=== PATIENT | male | born 1980 | race Native Hawaiian/Other Pacific Islander ===

== ENCOUNTER 2016-06-07 19:34 | Emergency (ER) | payer OTHER ==
[2016-06-07] MEDS ORDERED: NORCO 5/325 PO ONE (22:57)
--- NOTE | 2016-06-07 22:59 | Emergency Department Report ---
ED Fall HPI - General Chief Complaint: Neck Pain/Injury Stated Complaint: FALL/BACK PAIN Time Seen by Provider: 06/07/16 22:54 Source: patient, family Mode of arrival: Ambulatory - History of Present Illness Initial Comments: Patient here reported that he fell off a ladder 6 feet on Wednesday and landed on concrete and hit is neck and is having pain in the back of his neck. He denies any loss of consciousness or headache at present. He said he was seen at another facility and they did x-ray and CT scan but he doesn't know whether report is. He said they prescribed him Flexeril and Toradol and he is not having any relief. He cannot tell me what hospital he was seen at. He reports continued pain at 10 out of 10. Burning sensation to mid posterior neck. Denies numbness or tingling to extremities. Denies any dizziness or nausea. He is also complaining of left shoulder pain. MD Complaint: fall Onset/Timin -: days(s) Fall From: from height (distance) (6 feet off ladder) When Fall Occurred: # days [employer] (2) Fall Witnessed: yes, by bystander Place Fall Occurred: street Loss of Consciousness: none Prolonged Down Time?: no Symptoms Prior to Fall: none Location: neck Location - Extremities: Left: Shoulder (pain) Severity: severe Severity scale (0 -10): 10 Quality: aching, other (burning) Context: tripped/slipped Associated Symptoms: neck pain. denies: headache, numbness, weakness, chest paint, shortness of breath, abdominal pain, hematuria, unable to walk, lightheaded, vertigo, confusion - Related Data Previous Rx's Medication Instructions Recorded Last Taken Type traMADol [Ultram] 50 mg PO Q6HR PRN #20 tablet 06/08/16 Unknown Rx Allergies Allergy/AdvReac Type Severity Reaction Status Date / Time morphine AdvReac Nausea Verified 06/07/16 19:50 ED Review of Systems ROS: Stated complaint: FALL/BACK PAIN Other details as noted in HPI Comment: All other systems reviewed and negative Constitutional: denies: chills, fever Respiratory: no symptoms reported Cardiovascular: denies: chest pain, palpitations Gastrointestinal: denies: abdominal pain, nausea, vomiting Musculoskeletal: arthralgia. denies: back pain Skin: denies: rash Neurological: denies: headache, weakness, numbness, paresthesias, confusion, abnormal gait, vertigo ED Past Medical Hx - Past Medical History Previous Medical History?: No - Surgical History Past Surgical History?: Yes Additional Surgical History: RIGHT ARM - Family History Family history: no significant - Social History Smoking Status: Current Every Day Smoker Substance Use Type: None - Medications Home Medications: Home Medications Medication Instructions Recorded Confirmed Last Taken Type traMADol [Ultram] 50 mg PO Q6HR PRN #20 tablet 06/08/16 Unknown Rx ED Physical Exam - General Limitations: No Limitations General appearance: alert, in no apparent distress - Head Head exam: Present: atraumatic, normocephalic, normal inspection - Expanded Head Exam Expanded Head exam: Absent: laceration, abrasion, contusion, hematoma, racoon eyes, penaloza's sign, general tenderness, tenderness of temporal artery, CSF rhinorrhea , CSF otorrhea, other - Eye Eye exam: Present: normal appearance, PERRL, EOMI. Absent: periorbital swelling , periorbital tenderness Pupils: Present: normal accommodation - ENT ENT exam: Present: normal exam, normal orophraynx, mucous membranes moist, TM's normal bilaterally, normal external ear exam - Neck Neck exam: Present: normal inspection, full ROM. Absent: tenderness, meningismus - Expanded Neck Exam Expanded Neck exam: Absent: tenderness, midline deformity, anterior neck swelling, tracheal deviation - Respiratory Respiratory exam: Present: normal lung sounds bilaterally. Absent: respiratory distress, chest wall tenderness - Cardiovascular Cardiovascular Exam: Present: normal rhythm, tachycardia, normal heart sounds - GI/Abdominal GI/Abdominal exam: Present: soft, normal bowel sounds. Absent: distended, tenderness, guarding, rebound, rigid - Extremities Exam Extremities exam: Present: normal inspection, full ROM, normal capillary refill. Absent: tenderness, pedal edema, joint swelling, calf tenderness - Back Exam Back exam: Present: normal inspection, full ROM. Absent: tenderness, CVA tenderness (R), CVA tenderness (L), muscle spasm, paraspinal tenderness, vertebral tenderness, rash noted - Expanded Back Exam Expanded Back exam: Absent: saddle anesthesia Back exam: Negative Straight Leg Raising: Left, Right - Neurological Exam Neurological exam: Present: alert, oriented X3, normal gait, reflexes normal. Absent: motor sensory deficit - Expanded Neurological Exam Expanded Neurological exam: Absent: innattentive, memory loss-remote event, memory loss- recent event, ataxia, receptive aphasia, expressive aphasia, total aphasia, tremor, protecting the airway Patient oriented to: Present: person, place, time Speech: Present: fluid speech Cranial nerves: EOM's Intact: Normal, Gag Reflex: Normal, Nystagmus: Normal, Facial Sensation: Normal Cerebellar function: Romberg: Normal Upper motor neuron: Pronator Drift: Normal, Sensory Extinction: Normal Sensory exam: Upper Extremity Light Touch: Normal, Upper Extremity Temperature: Normal, UE 2 Point Discrimination: Normal, Lower Extremity Light Touch: Normal, Lower Extremity Temperature: Normal, LE 2 Point Discrimination: Normal Motor strength exam: RUE: 5, LUE: 5, RLE: 5, LLE: 5 DTR: bicep (R): 2+, bicep (L): 2+, tricep (R): 2+, tricep (L): 2+, knee (R): 2+ , knee (L): 2+, ankle (R): 2+, ankle (L): 2+ Best Eye Response ([place]): (4) open spontaneously Best Motor Response ([place]): (6) obeys commands Best Verbal Response ([place]): (5) oriented [place] Total: 15 - Psychiatric Psychiatric exam: Present: normal affect, normal mood - Skin Skin exam: Present: warm, dry, intact, normal color. Absent: rash ED Course Vital Signs 06/07/16 06/07/16 06/08/16 19:51 23:04 00:41 Temperature 97.8 F 98.6 F Pulse Rate 105 H 100 H Respiratory 18 20 20 Rate Blood Pressure 139/87 Blood Pressure 137/89 [Left] O2 Sat by Pulse 98 100 Oximetry - Reevaluation(s) Reevaluation #1: 06/08/16 00:27 Patient received [place] 5/325 2 tablets emergency room to manage pain. ED Medical Decision Making - Radiology Data Radiology results: report reviewed CT scan of C-spine revealed normal exam. CT scan of the head revealed normal examination. X-ray of left shoulder reveal no acute fracture or dislocation. - Medical Decision Making ED course: I discussed with patient has CT and x-ray results. He understands that there are no fracture or dislocation. He understands that his CT scan and x-rays weren't negative. Patient was given [place] 5/325 mg 2 tablets emergency room for pain. Pain is now down to 3 out of 10. Patient discharged home to follow up with orthopedic. He was given prescription for Motrin. Critical care attestation.: If time is entered above; I have spent that time in minutes in the direct care of this critically ill patient, excluding procedure time. ED Disposition Clinical Impression: Arthralgia of left shoulder region Fall from ladder Qualifiers: Encounter type: initial encounter Qualified Code(s): W11.XXXA - Fall on and from ladder, initial encounter Neck muscle strain Qualifiers: Encounter type: initial encounter Qualified Code(s): S16.1XXA - Strain of muscle, fascia and tendon at neck level, initial encounter Disposition: DISCHARGED TO HOME OR SELFCARE Is pt being admited?: No Does the pt Need Aspirin: No Condition: Stable Instructions: Muscle Strain (ED), Arthralgia (ED), Fall Prevention (ED) Prescriptions: traMADol [Ultram] 50 mg PO Q6HR PRN #20 tablet PRN Reason: Pain Referrals: ELIOT WASHINGTON MD [Staff Physician] - 2-3 Days PRIMARY CARE, [Primary Care Provider] - 2-3 Days Forms: Accompanied Note, Work/School Release Form(ED)
--- NOTE | 2016-06-07 23:47 | Cat Scan Report ---
FINAL REPORT PROCEDURE: CT HEAD/BRAIN WO CON TECHNIQUE: Computerized tomography of the head was performed without contrast material. HISTORY: Fall from ladder COMPARISON: No prior studies are available for comparison. FINDINGS: No CT evidence of intracranial mass, hemorrhage, acute territorial infarction, or hydrocephalus. The intracranial arteries are symmetric in density. Calvarium is intact. There is ethmoid sinus mucosal thickening. There is a small retention cyst or polyp in the left maxillary sinus, measuring 9 millimeters. Mastoids are aerated. IMPRESSION: No CT evidence of acute abnormality
--- NOTE | 2016-06-08 00:03 | Cat Scan Report ---
FINAL REPORT PROCEDURE: CT CERVICAL SPINE WO CON TECHNIQUE: Computerized tomography of the cervical spine was performed from the skull base to T1 without contrast material. HISTORY: fall with cspine pain COMPARISON: No prior studies are available for comparison. FINDINGS: Vertebral body heights and alignment are maintained. No acute fracture or subluxation is identified. Limited evaluation of disc material. IMPRESSION: No acute abnormality is seen.
--- NOTE | 2016-06-08 00:10 | XRay Report ---
FINAL REPORT PROCEDURE: XR SHOULDER 2 LT TECHNIQUE: Left shoulder, three views HISTORY: fall with shoulder pain COMPARISON: No prior studies are available for comparison. FINDINGS: No acute fracture or dislocation is seen. Glenohumeral and acromioclavicular joints are intact. IMPRESSION: No acute fracture is identified
[2016-06-08 00:43] VITALS: BP 137/89
== END 2016-06-08 00:44 | disposition home or self-care (01) ==
LOC: ED 19:34
DX: S16.1XXA Strain of muscle, fascia and tendon at neck level, initial encounter (principal); M25.512 Pain in left shoulder; F17.200 Nicotine dependence, unspecified, uncomplicated; Z98.890 Other specified postprocedural states; Z88.6 Allergy status to analgesic agent; W17.89XA Other fall from one level to another, initial encounter; Y93.9 Activity, unspecified; Y99.9 Unspecified external cause status; Y92.410 Unspecified street and highway as the place of occurrence of the external cause
CPT/HCPCS: 70450; 72125

== ENCOUNTER 2017-07-02 15:09 | Emergency (ER) | payer MEDICAID ==
[2017-07-02 15:22] VITALS: BP 145/89
--- NOTE | 2017-07-02 15:48 | Emergency Department Report ---
Blank Doc - Documentation Documentation: Patient is a 37-year-old male who is presenting with sensation that this a bowel stuck in his throat. Patient was eating some chicken several days ago and now has a foreign body sensation, mid neck. Patient states when he swallows there is pain. Soft tissue x-ray of the neck be given as well as a GI cocktail with lidocaine.
[2017-07-02] MEDS ORDERED: ALUM-MAG HYDROX-SIMETH 200-200-20MG/5ML PO ONE (15:49)
[2017-07-02] MEDS ORDERED: LIDOCAINE VISCOUS 2% PO ONE (15:49)
--- NOTE | 2017-07-02 18:14 | Emergency Department Report ---
ED ENT HPI - General Chief complaint: Skin/Abscess/Foreign Body Stated complaint: FOREIGN BODY IN THROAT X 2DAYS Time Seen by Provider: 07/02/17 15:25 Source: patient Mode of arrival: Ambulatory Limitations: No Limitations - History of Present Illness Initial comments: Patient is a 37-year-old male who is presenting with pain when he swallows in the mid neck. Patient states 2 days ago he was eaten some chicken and thinks a bone might be stuck. Patient is able to tolerate fluids. But has some increased pain when he swallows solids. Patient deny any other complaints at this time. Patient is not vomiting there is no fever cough. - Related Data Previous Rx's Medication Instructions Recorded Last Taken Type traMADol [Ultram] 50 mg PO Q6HR PRN #20 tablet 06/08/16 Unknown Rx HYDROcodone/ACETAMINOPHEN 15 ml PO Q6HR PRN 3 Days solution 07/02/17 Unknown Rx [Hydrocodon-Acetamin 7.5-325/15] prednisoLONE 45 mg PO DAILY #5 solution 07/02/17 Unknown Rx Allergies Allergy/AdvReac Type Severity Reaction Status Date / Time No Known Allergies Allergy Unverified 07/02/17 15:18 ED Dental HPI - General Chief complaint: Skin/Abscess/Foreign Body Stated complaint: FOREIGN BODY IN THROAT X 2DAYS Time Seen by Provider: 07/02/17 15:25 Source: patient Mode of arrival: Ambulatory Limitations: No Limitations - Related Data Previous Rx's Medication Instructions Recorded Last Taken Type traMADol [Ultram] 50 mg PO Q6HR PRN #20 tablet 06/08/16 Unknown Rx HYDROcodone/ACETAMINOPHEN 15 ml PO Q6HR PRN 3 Days solution 07/02/17 Unknown Rx [Hydrocodon-Acetamin 7.5-325/15] prednisoLONE 45 mg PO DAILY #5 solution 07/02/17 Unknown Rx Allergies Allergy/AdvReac Type Severity Reaction Status Date / Time No Known Allergies Allergy Unverified 07/02/17 15:18 ED Review of Systems ROS: Stated complaint: FOREIGN BODY IN THROAT X 2DAYS Other details as noted in HPI Comment: All other systems reviewed and negative ED Past Medical Hx - Past Medical History Hx Psychiatric Treatment: Yes (DEPRESSION) - Surgical History Additional Surgical History: RIGHT ARM - Social History Smoking Status: Current Every Day Smoker Substance Use Type: None - Medications Home Medications: Home Medications Medication Instructions Recorded Confirmed Last Taken Type traMADol [Ultram] 50 mg PO Q6HR PRN #20 tablet 06/08/16 Unknown Rx HYDROcodone/ACETAMINOPHEN 15 ml PO Q6HR PRN 3 Days solution 07/02/17 Unknown Rx [Hydrocodon-Acetamin 7.5-325/15] prednisoLONE 45 mg PO DAILY #5 solution 07/02/17 Unknown Rx ED Physical Exam - General Limitations: No Limitations General appearance: alert, in no apparent distress - Head Head exam: Present: atraumatic, normocephalic - Eye Eye exam: Present: normal appearance - ENT ENT exam: Present: mucous membranes moist - Neck Neck exam: Present: normal inspection - Respiratory Respiratory exam: Present: normal lung sounds bilaterally. Absent: respiratory distress - Cardiovascular Cardiovascular Exam: Present: regular rate, normal rhythm. Absent: systolic murmur, diastolic murmur, rubs, gallop - GI/Abdominal GI/Abdominal exam: Present: soft, normal bowel sounds - Rectal Rectal exam: Present: deferred - Extremities Exam Extremities exam: Present: normal inspection - Back Exam Back exam: Present: normal inspection - Neurological Exam Neurological exam: Present: alert, oriented X3 - Psychiatric Psychiatric exam: Present: normal affect, normal mood - Skin Skin exam: Present: warm, dry, intact, normal color. Absent: rash ED Course Vital Signs 07/02/17 15:18 Temperature 98.4 F Pulse Rate 96 H Respiratory 18 Rate Blood Pressure 145/89 O2 Sat by Pulse 96 Oximetry ED Medical Decision Making - Radiology Data Radiology results: image reviewed interpreted by me: No radiopaque foreign body was seen Critical care attestation.: If time is entered above; I have spent that time in minutes in the direct care of this critically ill patient, excluding procedure time. ED Disposition Clinical Impression: Foreign body sensation in throat Disposition: DC-01 TO HOME OR SELFCARE Is pt being admited?: No Does the pt Need Aspirin: No Condition: Stable Prescriptions: HYDROcodone/ACETAMINOPHEN [Hydrocodon-Acetamin 7.5-325/15] 15 ml PO Q6HR PRN 3 Days solution PRN Reason: Pain prednisoLONE 45 mg PO DAILY #5 solution Referrals: LENNY LOU MD [Referring] - 3-5 Days (if pain worsens)
--- NOTE | 2017-07-02 18:19 | XRay Report ---
FINAL REPORT PROCEDURE: XR NECK SOFT TISSUE TECHNIQUE: Soft tissue neck radiographs, 2 views, including AP and lateral. CPT 63037 HISTORY: FB sensation COMPARISON: No prior studies are available for comparison. FINDINGS: Bone mineralization: Normal. Alignment: Normal. Soft tissues: Epiglottis and hypopharyngeal soft tissues normal. Foreign bodies: None. IMPRESSION: Negative exam. No radiopaque foreign bodies are seen.
== END 2017-07-02 18:32 | disposition home or self-care (01) ==
LOC: ED 15:09
DX: J39.2 Other diseases of pharynx (principal); F17.200 Nicotine dependence, unspecified, uncomplicated
CPT/HCPCS: 70360

== ENCOUNTER 2020-09-06 21:35 | Emergency (ER) | payer SELFPAY | END 2020-09-06 21:40 | disposition left against medical advice (07) | LOC: ED 21:35 | DX: R07.9 Chest pain, unspecified (principal); Z53.21 Procedure and treatment not carried out due to patient leaving prior to being seen by health care provider ==

== ENCOUNTER 2020-09-07 01:13 | Observation (INO) | payer SELFPAY ==
--- NOTE | 2020-09-07 02:35 | Emergency Department Report ---
ED Chest Pain HPI - General Chief Complaint: Chest Pain Stated Complaint: CHEST PAIN;LT ARM HEAVINESS PUI?: No Time Seen by Provider: 09/07/20 01:53 Source: patient Mode of arrival: Ambulatory Limitations: No Limitations - History of Present Illness Initial Comments: Patient is a 40-year-old male who presents emergency room with complaints of chest pain shortness of breath. Patient states that the symptoms started yesterday. Patient states his symptoms worsening. Patient states that his shortness of breath is better with rest and worse with exertion. Patient states his chest pain is a 7 out of 10. He states the chest pain is rating to his left neck and to his left upper extremity. Patient states that the chest pain is better with rest and worse with exertion. Patient denies recent travel. Patient denies recent international travel. Patient denies exposure to the novel coronavirus. Patient denies sick contacts. Patient denies fever and chills. Patient denies cough. Patient denies diarrhea. Patient denies coming in contact with anybody with symptoms of the novel coronavirus. MD Complaint: chest pain -: Sudden Severity: severe Severity scale (0 -10): 7 Quality: sharp Consistency: constant Improves With: rest Worsens With: exertion re: dyspnea, sense of impending doom. denies: nausea, vomting, diaphoresis Other Symptoms: palpitations. denies: cough, fever, syncope, rash, acid taste in mouth, leg swelling, burping Treatments Prior to Arrival: none Aspirin use within the Past 7 Days: (0) No - Related Data On Oral Contraceptives: No Previous Rx's Medication Instructions Recorded Last Taken Type traMADoL [Ultram] 50 mg PO Q6HR PRN #20 tablet 06/08/16 Unknown Rx HYDROcodone/ACETAMINOPHEN 15 ml PO Q6HR PRN 3 Days solution 07/02/17 Unknown Rx [Hydrocodon-Acetamin 7.5-325/15] prednisoLONE 45 mg PO DAILY #5 solution 07/02/17 Unknown Rx Allergies Allergy/AdvReac Type Severity Reaction Status Date / Time No Known Allergies Allergy Unverified 07/02/17 15:18 Heart Score - HEART Score History: Moderately suspicious EKG: Non-specific Age: < 45 Risk factors: > 3 risk factors or hx of atherosclerotic disease Troponin: < normal limit HEART Score: 4 - EKG Read Time Time EKG Completed: 21:46 EKG Read Time: 21:51 ED Review of Systems ROS: Stated complaint: CHEST PAIN;LT ARM HEAVINESS Other details as noted in HPI Constitutional: denies: chills, fever Eyes: denies: eye pain, eye discharge, vision change ENT: denies: ear pain, throat pain Respiratory: shortness of breath. denies: cough, wheezing Cardiovascular: as per HPI, chest pain, palpitations, dyspnea on exertion Endocrine: no symptoms reported Gastrointestinal: denies: abdominal pain, nausea, diarrhea Genitourinary: denies: urgency, dysuria Musculoskeletal: denies: back pain, joint swelling, arthralgia Skin: denies: rash, lesions Neurological: denies: headache, weakness, paresthesias Psychiatric: denies: anxiety, depression Hematological/Lymphatic: denies: easy bleeding, easy bruising ED Past Medical Hx - Past Medical History Previous Medical History?: Yes Hx Hypertension: Yes Hx Psychiatric Treatment: Yes (DEPRESSION) Additional medical history: High Cholesterol - Surgical History Past Surgical History?: Yes Additional Surgical History: RIGHT ARM - Family History Family history: no significant - Social History Smoking Status: Current Every Day Smoker Substance Use Type: None - Medications Home Medications: Home Medications Medication Instructions Recorded Confirmed Last Taken Type traMADoL [Ultram] 50 mg PO Q6HR PRN #20 tablet 06/08/16 Unknown Rx HYDROcodone/ACETAMINOPHEN 15 ml PO Q6HR PRN 3 Days solution 07/02/17 Unknown Rx [Hydrocodon-Acetamin 7.5-325/15] prednisoLONE 45 mg PO DAILY #5 solution 07/02/17 Unknown Rx ED Physical Exam - General Limitations: No Limitations General appearance: alert, in no apparent distress - Head Head exam: Present: atraumatic, normocephalic - Eye Eye exam: Present: normal appearance - ENT ENT exam: Present: mucous membranes moist - Neck Neck exam: Present: normal inspection - Respiratory Respiratory exam: Present: normal lung sounds bilaterally. Absent: respiratory distress - Cardiovascular Cardiovascular Exam: Present: regular rate, normal rhythm. Absent: systolic murmur, diastolic murmur, rubs, gallop - GI/Abdominal GI/Abdominal exam: Present: soft, normal bowel sounds - Rectal Rectal exam: Present: deferred - Extremities Exam Extremities exam: Present: normal inspection - Back Exam Back exam: Present: normal inspection - Neurological Exam Neurological exam: Present: alert, oriented X3 - Psychiatric Psychiatric exam: Present: normal affect, normal mood - Skin Skin exam: Present: warm, dry, intact, normal color. Absent: rash ED Course Vital Signs 09/07/20 01:37 Temperature 98 F Pulse Rate 92 H Respiratory 18 Rate Blood Pressure 135/85 [Left] O2 Sat by Pulse 96 Oximetry - Reevaluation(s) Reevaluation #1: I discussed all results with patient. I discussed plan of care with patient. Patient agrees with plan of care and admission. Patient to be admitted to the hospitalist service. 09/07/20 03:15 - Consultations Consultation #1: Hospitalist consulted for admission. Hospitalist to admit patient. 09/07/20 03:15 KORINA score - Korina Score Age > 65: (1) Yes Aspirin use within the Past 7 Days: (0) No 3 or more CAD Risk Factors: (1) Yes 2 or more Angina events in past 24 hrs: (1) Yes Known CAD with more than 50% Stenosis: (0) No Elevated Cardiac Markers: (0) No ST Deviation Greater than 0.5mm: (0) No KORINA Score: 3 ED Medical Decision Making - Lab Data Result diagrams: 09/07/20 02:23 09/07/20 02:23 - EKG Data -: EKG Interpreted by Me EKG shows normal: sinus rhythm, axis, intervals, QRS complexes, ST-T waves Rate: normal - Radiology Data Radiology results: report reviewed, image reviewed interpreted by me: Chest x-ray: No pneumonia, no pneumothorax, no foreign body, no osseous findings, no acute findings - Medical Decision Making Patient is a 40-year-old male that presents emergency room with complaints of chest pain and shortness of breath. Patient's chest pain started yesterday. Patient's chest pain shortness of breath worsening. Patient has high cholesterol, hypertension, patient is a smoker. Patient has not seen a doctor for a few years. Patient is not sure if he is a diabetic. Patient had labs done which were essentially unremarkable. Patient's troponin was negative. Patient had an EKG which was negative for acute findings. Patient had a normal ST segment. Patient had a chest x-ray which was negative for acute findings. I personally reviewed the EKG and the chest x-ray. Patient is high risk. Patient has an elevated heart score. Patient will require inpatient evaluation of his chest pain. Patient admitted to the hospital service for further evalua tion treatment and rule out ACS. Critical care time documented due to the multiple reassessments, prolonged time at the bedside, interpretation of diagnostics and labs. - Differential Diagnosis ACS, chest pain, shortness of breath, Critical Care Time: Yes Critical care time in (mins) excluding proc time.: 35 Critical care attestation.: If time is entered above; I have spent that time in minutes in the direct care of this critically ill patient, excluding procedure time. Critical Care Time: 35 minutes ED Disposition Clinical Impression: SOB (shortness of breath) Chest pain Qualifiers: Chest pain type: unspecified Qualified Code(s): R07.9 - Chest pain, unspecified Disposition: DC-09 OP ADMIT IP TO THIS HOSP Is pt being admited?: Yes Does the pt Need Aspirin: No Condition: Critical Time of Disposition: 03:17
--- NOTE | 2020-09-07 02:44 | XRay Report ---
CHEST 2 VIEWS INDICATION / CLINICAL INFORMATION: Chest Pain. COMPARISON: None available. FINDINGS: SUPPORT DEVICES: None. HEART / MEDIASTINUM: No significant abnormality. LUNGS / PLEURA: No significant pulmonary or pleural abnormality. No pneumothorax. ADDITIONAL FINDINGS: No significant additional findings. IMPRESSION: 1. No acute findings. Signer Name: Chana Hilton MD Signed: 09/07/2020 2:39 AM Workstation Name: [id number]
[2020-09-07 02:50] LABS: Basophils % (Auto) 0.3 % (0.0-1.8); Eosinophils # (Auto) 0.4 K/mm3 (0.0-0.4); Eosinophils % (Auto) 3.8 % (0.0-4.3); Hematocrit 47.2 % (35.5-45.6); Hemoglobin 16.5 gm/dl (11.8-15.2); Lymphocytes # (Auto) 3.8 K/mm3 (1.2-5.4); Mean Corpuscular HGB Conc 35 % (32-34); Mean Corpuscular Volume 89 fl (84-94); Monocytes # (Auto) 0.9 K/mm3 (0.0-0.8); Monocytes % (Auto) 9.1 % (0.0-7.3); Platelet Count 194 K/mm3 (140-440); Red Blood Count 5.32 M/mm3 (3.65-5.03); Red Cell Distribution Width 14.5 % (13.2-15.2)
[2020-09-07 03:01] LABS: Alanine Aminotransferase 25 units/L (7-56); Albumin 3.8 g/dL (3.9-5); BUN/Creatinine Ratio 15; Blood Urea Nitrogen 17 mg/dL (9-20); Calcium 8.7 mg/dL (8.4-10.2); Hemolysis Index 35
--- NOTE | 2020-09-07 03:49 | History and Physical Report ---
History of Present Illness Date of examination: 09/07/20 Date of admission: 09/07/20 Chief complaint: chest pain History of present illness: Patient is a 40-year-old male who presents emergency room with complaints of chest pain shortness of breath. Patient states that the symptoms started yesterday. Patient states his symptoms worsening. Patient states that his shortness of breath is better with rest and worse with exertion. Patient states his chest pain is a 7 out of 10. He states the chest pain is rating to his left neck and to his left upper extremity. Patient states that the chest pain is better with rest and worse with exertion. ED work-upWBC 9.8, hemoglobin 16.5, platelets 194, serum glucose 125, sodium level 141, potassium 4.0, creatinine 1.1, calcium 8.7, albumin 3.8 and troponin less than 0.01 checks x-ray done no acute finding EKG no acute finding. Patient seen in the ED at bedside patient alert and oriented x3 patient on room air O2 sats 97 to 98%. Patient reports chest pain level at the time of this assessment is 4/10 she patient is symptomatic chest pain nausea vomiting she is asking the blood pressure is low. We are giving him bolus of 50 Past History Past Medical History: hypertension, hyperlipidemia Past Surgical History: No surgical history Social history: Lives alone, smoking Family history: diabetes Medications and Allergies Allergies Allergy/AdvReac Type Severity Reaction Status Date / Time No Known Allergies Allergy Unverified 07/02/17 15:18 Home Medications Medication Instructions Recorded Confirmed Last Taken Type traMADoL [Ultram] 50 mg PO Q6HR PRN #20 tablet 06/08/16 09/07/20 Unknown Rx HYDROcodone/ACETAMINOPHEN 15 ml PO Q6HR PRN 3 Days solution 07/02/17 09/07/20 Unknown Rx [Hydrocodon-Acetamin 7.5-325/15] prednisoLONE 45 mg PO DAILY #5 solution 07/02/17 09/07/20 Unknown Rx Review of Systems Ears, nose, mouth and throat: no epistaxis, no bleeding gums Cardiovascular: chest pain, high blood pressure Respiratory: no wheezing Gastrointestinal: no abdominal pain Genitourinary Male: no hematuria Musculoskeletal: no neck stiffness Integumentary: no rash, no pruritis Neurological: no head injury Psychiatric: anxiety, depression Endocrine: no polyphagia Hematologic/Lymphatic: no easy bruising, no easy bleeding Allergic/Immunologic: no urticaria Exam - Constitutional Vitals: Temp Pulse Resp BP Pulse Ox 98 F 89 19 144/85 94 09/07/20 01:37 09/07/20 03:15 09/07/20 03:15 09/07/20 03:15 09/07/20 03:15 General appearance: Present: mild distress, obese - EENT Eyes: Present: PERRL ENT: hearing intact, clear oral mucosa - Neck Neck: Present: supple, normal ROM - Respiratory Respiratory effort: normal Respiratory: bilateral: CTA - Cardiovascular Heart Sounds: Present: S1 & S2. Absent: rub, click - Extremities Extremities: pulses symmetrical, No edema Peripheral Pulses: within normal limits - Abdominal General gastrointestinal: Present: soft, non-tender, non-distended, normal bowel sounds Male genitourinary: Present: normal - Integumentary Integumentary: Present: clear, warm, dry - Musculoskeletal Musculoskeletal: gait normal, strength equal bilaterally - Psychiatric Psychiatric: appropriate mood/affect, intact judgment & insight, cooperative - Neurologic Neurologic: CNII-XII intact, moves all extremities - Allied Health Allied health notes reviewed: nursing HEART Score - HEART Score EKG: Non-specific Age: < 45 Risk factors: > 3 risk factors or hx of atherosclerotic disease Troponin: Troponin T < 0.010 ng/mL (0.00-0.029) 09/07/20 02:23 Troponin: < normal limit Results - Labs CBC & Chem 7: 09/07/20 02:23 09/07/20 02:23 Labs: Abnormal lab results 09/07/20 09/07/20 Range/Units 02:23 02:23 RBC 5.32 H (3.65-5.03) M/mm3 Hgb 16.5 H (11.8-15.2) gm/dl Hct 47.2 H (35.5-45.6) % MCHC 35 H (32-34) % Lymph % (Auto) 39.0 H (13.4-35.0) % [place] % (Auto) 9.1 H (0.0-7.3) % [place] # (Auto) 0.9 H (0.0-0.8) K/mm3 Glucose 125 H (75-100) mg/dL AST < 5 L (5-40) units/L Albumin 3.8 L (3.9-5) g/dL Assessment and Plan - Patient Problems (1) Chest pain Current Visit: Yes Status: Acute Qualifiers: Chest pain type: unspecified Qualified Code(s): R07.9 - Chest pain, unspecified Plan to address problem: Continue aspirin, statin and nitro sublingual as needed for chest pain Echocardiogram and stress test ordered follow-up with results Urologic Surgeon consulted Chest x-ray done showed no acute finding troponin negative and EKG normal (2) Essential (primary) hypertension Current Visit: Yes Status: Acute Plan to address problem: Monitor blood pressure Patient not able to remember the medicine that he was taking Start amlodipine and adjust blood pressure medicine if needed Hydralazine as needed (3) Hyperlipemia Current Visit: Yes Status: Acute Plan to address problem: Resume home statin (4) DVT prophylaxis Current Visit: Yes Status: Acute Plan to address problem: Subcutaneous Lovenox (5) Full code status Current Visit: Yes Status: Acute Plan to address problem: Patient is full code
[2020-09-07] MEDS ORDERED: ONDANSETRON 4 MG/2 ML INJ IV PRN (03:58)
[2020-09-07] MEDS ORDERED: ACETAMINOPHEN 325 MG TAB PO PRN (03:58)
[2020-09-07] MEDS ORDERED: MAGNESIUM HYDROXIDE (MOM) ORAL LIQD UDC PO PRN (03:58)
[2020-09-07] MEDS ORDERED: ALUM-MAG HYDROXIDE-SIMETHICONE 200-200-20MG/5ML ORAL LIQD 30 ML PO PRN (03:58)
[2020-09-07] MEDS ORDERED: NITROGLYCERIN 0.4 MG TAB SUBL SL PRN (03:58)
[2020-09-07] MEDS ORDERED: traMADol 50 MG TAB PO PRN (04:05)
[2020-09-07] MEDS ORDERED: traZODone 50 MG TAB PO PRN (04:06)
[2020-09-07] MEDS ORDERED: amLODIPine 5 MG TAB PO SCH (10:00)
[2020-09-07] MEDS ORDERED: LISINOPRIL 5 MG TAB PO SCH (10:00)
[2020-09-07] MEDS ORDERED: ENOXAPARIN 40 MG/0.4 ML INJ SUB-Q SCH (10:00)
--- NOTE | 2020-09-07 10:20 | Progress Note ---
Assessment and Plan Assessment and plan: (1) Chest pain Current Visit: Yes Status: Acute Qualifiers: Chest pain type: unspecified Qualified Code(s): R07.9 - Chest pain, unspecified Plan to address problem: Continue aspirin, statin and nitro sublingual as needed for chest pain Grain Grader consulted Chest x-ray done showed no acute finding troponin negative and EKG normal (2) Essential (primary) hypertension Current Visit: Yes Status: Acute Plan to address problem: Monitor blood pressure Patient not able to remember the medicine that he was taking Hydralazine as needed (3) Hyperlipemia Current Visit: Yes Status: Acute Plan to address problem: Resume home statin (4) DVT prophylaxis Current Visit: Yes Status: Acute Plan to address problem: Subcutaneous Lovenox (5) Full code status Current Visit: Yes Status: Acute Plan to address problem: Patient is full code History Interval history: 40-year-old male who presents emergency room with complaints of chest pain shortness of breath. Patient states that the symptoms started yesterday. Patient states his symptoms worsening. Patient states that his shortness of breath is better with rest and worse with exertion. Patient states his chest pain is a 7 out of 10. He states the chest pain is rating to his left neck and to his left upper extremity. Patient states that the chest pain is better with rest and worse with exertion. ED work-upWBC 9.8, hemoglobin 16.5, platelets 194, serum glucose 125, sodium level 141, potassium 4.0, creatinine 1.1, calcium 8.7, albumin 3.8 and troponin less than 0.01 checks x-ray done no acute finding EKG no acute finding. Patient seen in the ED at bedside patient alert and oriented x3 patient on room air O2 sats 97 to 98%. Patient reports chest pain level at the time of this assessment is 4/10 she patient is symptomatic chest pain nausea vomiting she is asking the blood pressure is low. Hospital course 09/07. Cardiology consulted for evaluation. Vitals stable Hospitalist Physical - Physical exam Narrative exam: VITAL SIGNS: Reviewed. GENERAL: Awake HEAD: No signs of head trauma. EYES: Pupils are equal. Extraocular motions intact. MOUTH: Oropharynx is normal. NECK: No adenopathy, no JVD. CHEST: Chest with diminished breath sounds bilaterally. No wheezes, rales, or rhonchi. CARDIAC: normal S1 and S2, without murmurs, gallops, or rubs. ABDOMEN: Soft, non tender and non distended. No rebound or guarding, and no masses palpated. Bowel Sounds normal. MUSCULOSKELETAL: No edema NEUROLOGIC EXAM: Alert and oriented x3. No focal neurologic deficits SKIN: No obvious lesions - Constitutional Vitals: Temp Pulse Resp BP Pulse Ox 98.1 F 92 H 18 132/68 94 09/07/20 07:30 09/07/20 07:30 09/07/20 07:30 09/07/20 07:30 09/07/20 07:30 HEART Score - HEART Score EKG: Non-specific Age: < 45 Risk factors: > 3 risk factors or hx of atherosclerotic disease Troponin: Troponin T < 0.010 ng/mL (0.00-0.029) 09/07/20 02:23 Troponin: < normal limit Results - Labs CBC & Chem 7: 09/07/20 02:23 09/07/20 02:23 Labs: Laboratory Last Values WBC 9.8 K/mm3 (4.5-11.0) 09/07/20 02:23 RBC 5.32 M/mm3 (3.65-5.03) H 09/07/20 02:23 Hgb 16.5 gm/dl (11.8-15.2) H 09/07/20 02:23 Hct 47.2 % (35.5-45.6) H 09/07/20 02:23 MCV 89 fl (84-94) 09/07/20 02:23 MCH 31 pg (28-32) 09/07/20 02:23 MCHC 35 % (32-34) H 09/07/20 02:23 RDW 14.5 % (13.2-15.2) 09/07/20 02:23 Plt Count 194 K/mm3 (140-440) 09/07/20 02:23 Lymph % (Auto) 39.0 % (13.4-35.0) H 09/07/20 02:23 [place] % (Auto) 9.1 % (0.0-7.3) H 09/07/20 02:23 Eos % (Auto) 3.8 % (0.0-4.3) 09/07/20 02:23 Baso % (Auto) 0.3 % (0.0-1.8) 09/07/20 02:23 Lymph # (Auto) 3.8 K/mm3 (1.2-5.4) 09/07/20 02:23 [place] # (Auto) 0.9 K/mm3 (0.0-0.8) H 09/07/20 02:23 Eos # (Auto) 0.4 K/mm3 (0.0-0.4) 09/07/20 02:23 Baso # (Auto) 0.0 K/mm3 (0.0-0.1) 09/07/20 02:23 Seg Neutrophils % 47.8 % (40.0-70.0) 09/07/20 02:23 Seg Neutrophils # 4.7 K/mm3 (1.8-7.7) 09/07/20 02:23 Sodium 141 mmol/L (137-145) 09/07/20 02:23 Potassium 4.0 mmol/L (3.6-5.0) 09/07/20 02:23 Chloride 102.5 mmol/L (98-107) 09/07/20 02:23 Carbon Dioxide 29 mmol/L (22-30) 09/07/20 02:23 Anion Gap 14 mmol/L 09/07/20 02:23 BUN 17 mg/dL (9-20) 09/07/20 02:23 Creatinine 1.1 mg/dL (0.8-1.3) 09/07/20 02:23 Estimated GFR > 60 ml/min 09/07/20 02:23 BUN/Creatinine Ratio 15 % 09/07/20 02:23 Glucose 125 mg/dL (75-100) H 09/07/20 02:23 Calcium 8.7 mg/dL (8.4-10.2) 09/07/20 02:23 Total Bilirubin < 0.20 mg/dL (0.1-1.2) 09/07/20 02:23 AST < 5 units/L (5-40) L 09/07/20 02:23 ALT 25 units/L (7-56) 09/07/20 02:23 Alkaline Phosphatase 71 units/L (35-129) 09/07/20 02:23 Troponin T < 0.010 ng/mL (0.00-0.029) 09/07/20 02:23 Total Protein 6.4 g/dL (6.3-8.2) 09/07/20 02:23 Albumin 3.8 g/dL (3.9-5) L 09/07/20 02:23 Albumin/Globulin Ratio 1.5 % 09/07/20 02:23 Pena/IV: Voiding Method Toilet Active Medications - Current Medications Current Medications: Generic Name Dose Route Start Last Admin Trade Name Freq PRN Reason Stop Dose Admin Acetaminophen 650 mg 09/07/20 03:58 Acetaminophen 325 Mg Tab PO Q4H PRN Pain MILD(1-3)/Fever >100.5/COHEN Al Hydrox/Mg Hydrox/Simethicone 30 ml 09/07/20 03:58 Alum-Mag Hydroxide-Simethicone [id number]/5ml Oral Liqd 30 Ml PO Q4H PRN Indigestion Amlodipine Besylate 5 mg 09/07/20 10:00 Amlodipine 5 Mg Tab PO QDAY [facility] Aspirin 81 mg 09/08/20 10:00 Aspirin 81 Mg Tab Chew PO QDAY [facility] Atorvastatin Calcium 40 mg 09/07/20 22:00 Atorvastatin 40 Mg Tab PO QHS [facility] Enoxaparin Sodium 40 mg 09/07/20 10:00 Enoxaparin 40 Mg/0.4 Ml Inj SUB-Q DAILY [facility] Protocol Lisinopril 5 mg 09/07/20 10:00 Lisinopril 5 Mg Tab PO QDAY [facility] Magnesium Hydroxide 30 ml 09/07/20 03:58 Magnesium Hydroxide (Mom) Oral Liqd Udc PO Q4H PRN Constipation Nitroglycerin 0.4 mg 09/07/20 03:58 Nitroglycerin 0.4 Mg Tab Subl SL .Q5MIN PRN Chest Pain Ondansetron HCl 4 mg 09/07/20 03:58 Ondansetron 4 Mg/2 Ml Inj IV Q8H PRN Nausea And Vomiting Sodium Chloride 10 ml 09/07/20 10:00 Sodium Chloride 0.9% 10 Ml Flush Syringe IV BID BRETT Sodium Chloride 10 ml 09/07/20 03:58 Sodium Chloride 0.9% 10 Ml Flush Syringe IV PRN PRN LINE FLUSH Tramadol HCl 50 mg 09/07/20 04:05 Tramadol 50 Mg Tab PO Q4H PRN Pain, Moderate (4-6) Trazodone HCl 50 mg 09/07/20 04:06 Trazodone 50 Mg Tab PO QHS PRN Insomnia
--- NOTE | 2020-09-07 10:32 | Consultation ---
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 Is a smoker. Last 24 to 48 hours having left-sided chest discomfort sounds like more like palpitations. With some arm pain. No syncope no lightheadedness no dizziness. No exertional symptoms. No aggravating or relieving factors. Patient walked up and down the [place] in front of me without any chest pain or shortness of breath. Blood pressure is better controlled with current regimen medications initial troponin is negative. Normal EKG. Patient's heart score is 2 no family history of premature coronary arterial disease Past History Past Medical History: hypertension, hyperlipidemia Past Surgical History: No surgical history Social history: Lives alone, smoking Family history: diabetes Medications and Allergies Allergies Allergy/AdvReac Type Severity Reaction Status Date / Time No Known Allergies Allergy Unverified 07/02/17 15:18 Home Medications Medication Instructions Recorded Confirmed Last Taken Type traMADoL [Ultram] 50 mg PO Q6HR PRN #20 tablet 06/08/16 09/07/20 Unknown Rx HYDROcodone/ACETAMINOPHEN 15 ml PO Q6HR PRN 3 Days solution 07/02/17 09/07/20 Unknown Rx [Hydrocodon-Acetamin 7.5-325/15] prednisoLONE 45 mg PO DAILY #5 solution 07/02/17 09/07/20 Unknown Rx Active Meds: Active Medications Acetaminophen (Acetaminophen 325 Mg Tab) 650 mg PO Q4H PRN PRN Reason: Pain MILD(1-3)/Fever >100.5/COHEN Al Hydrox/Mg Hydrox/Simethicone (Alum-Mag Hydroxide-Simethicone [phone]/5ml Oral Liqd 30 Ml) 30 ml PO Q4H PRN PRN Reason: Indigestion Amlodipine Besylate (Amlodipine 5 Mg Tab) 5 mg PO QDAY BRETT Aspirin (Aspirin 81 Mg Tab Chew) 81 mg PO QDAY BRETT Atorvastatin Calcium (Atorvastatin 40 Mg Tab) 40 mg PO QHS BRETT Enoxaparin Sodium (Enoxaparin 40 Mg/0.4 Ml Inj) 40 mg SUB-Q DAILY BRETT; Protocol Lisinopril (Lisinopril 5 Mg Tab) 5 mg PO QDAY BRETT Magnesium Hydroxide (Magnesium Hydroxide (Mom) Oral Liqd Udc) 30 ml PO Q4H PRN PRN Reason: Constipation Metoprolol Succinate (Metoprolol Succinate Xl 25 Mg Tab) 25 mg PO QDAY BRETT Nitroglycerin (Nitroglycerin 0.4 Mg Tab Subl) 0.4 mg SL .Q5MIN PRN PRN Reason: Chest Pain Ondansetron HCl (Ondansetron 4 Mg/2 Ml Inj) 4 mg IV Q8H PRN PRN Reason: Nausea And Vomiting Sodium Chloride (Sodium Chloride 0.9% 10 Ml Flush Syringe) 10 ml IV BID BRETT Sodium Chloride (Sodium Chloride 0.9% 10 Ml Flush Syringe) 10 ml IV PRN PRN PRN Reason: LINE FLUSH Tramadol HCl (Tramadol 50 Mg Tab) 50 mg PO Q4H PRN PRN Reason: Pain, Moderate (4-6) Trazodone HCl (Trazodone 50 Mg Tab) 50 mg PO QHS PRN PRN Reason: Insomnia Review of Systems All systems: negative (As per the HPI) Physical Examination Vital Signs Temp Pulse Resp BP Pulse Ox 98 F 92 H 18 135/85 96 09/07/20 01:37 09/07/20 01:37 09/07/20 01:37 09/07/20 01:37 09/07/20 01:37 General appearance: no acute distress, well-nourished HEENT: Positive: PERRL, Mucus Membranes Moist Neck: Positive: neck supple, trachea midline Cardiac: Positive: Reg Rate and Rhythm, S1/S2. Negative: Audible Murmur Lungs: Positive: clear to auscultation, Normal Breath Sounds Neuro: Positive: Grossly Intact Abdomen: Positive: Soft, Active Bowel Sounds. Negative: Tender, Distended Male genitourinary: Positive: normal Skin: Positive: Clear Incision: Cardiac Cath Site Musculoskeletal: No Pain, Normal Range of Motion Extremities: Present: normal. Absent: edema Results 09/07/20 02:23 09/07/20 02:23 Cardiac Enzymes 09/07/20 Range/Units 02:23 AST < 5 L (5-40) units/L CBC 09/07/20 Range/Units 02:23 WBC 9.8 (4.5-11.0) K/mm3 RBC 5.32 H (3.65-5.03) M/mm3 Hgb 16.5 H (11.8-15.2) gm/dl Hct 47.2 H (35.5-45.6) % Plt Count 194 (140-440) K/mm3 Lymph # (Auto) 3.8 (1.2-5.4) K/mm3 [place] # (Auto) 0.9 H (0.0-0.8) K/mm3 Eos # (Auto) 0.4 (0.0-0.4) K/mm3 Baso # (Auto) 0.0 (0.0-0.1) K/mm3 Comprehensive Metabolic Panel 09/07/20 Range/Units 02:23 Sodium 141 (137-145) mmol/L Potassium 4.0 (3.6-5.0) mmol/L Chloride 102.5 (98-107) mmol/L Carbon Dioxide 29 (22-30) mmol/L BUN 17 (9-20) mg/dL Creatinine 1.1 (0.8-1.3) mg/dL Glucose 125 H (75-100) mg/dL Calcium 8.7 (8.4-10.2) mg/dL AST < 5 L (5-40) units/L ALT 25 (7-56) units/L Alkaline Phosphatase 71 (35-129) units/L Total Protein 6.4 (6.3-8.2) g/dL Albumin 3.8 L (3.9-5) g/dL EKG interpretations - Telemetry EKG Rhythm: Sinus Rhythm (Normal sinus rhythm no ST-T abnormality) Assessment and Plan 40-year-old male with uncontrolled hypertension better controlled current dose of medications patient is chest pain is atypical in nature start low-dose beta- christie therapy discussed about smoking cessation in detail patient. Troponin is negative repeat. EKG is normal. Patient is chest pain-free. May be discharged from a cardiovascular point of view to follow-up as an outpatient on Wednesday advised patient refrain from any physical activity - Patient Problems (1) Smoker Current Visit: Yes Status: Chronic (2) Chest pain Current Visit: Yes Status: Acute Qualifiers: Chest pain type: unspecified Qualified Code(s): R07.9 - Chest pain, uns pecified (3) Essential (primary) hypertension Current Visit: Yes Status: Chronic (4) Hyperlipemia Current Visit: Yes Status: Chronic
--- NOTE | 2020-09-07 10:40 | Discharge Summary ---
Providers - Providers Date of Admission: 09/07/20 03:37 Date of discharge: 09/07/20 Attending physician: TUAN HERNANDEZ 09/07/20 Consult to Cardiac Rehabilitation [CONS] Routine Reason For Exam: Phase 1 09/07/20 03:58 Consult to Physician [CONS] Stat Comment: Consulting Provider: RYLEE ERNST Physician Instructions: Reason For Exam: chest Pain 09/07/20 03:59 Consult to Cardiology [CONS] Routine Consulting Provider: RYLEE ERNST Reason For Exam: chest pain [facility] Hospital[facility] Condition: Critical Hospital course: 38-year-old male with a medical history of hypertension presents to the hospital with chief complaint of chest pain. Patient symptoms started at home. He rated chest pain as 7/10 in severity. He decided to come in for further evaluation. Here in the ER, EKG showed no acute ST findings and troponin has been negative. Patient has no chest pain at this time. Cardiology has evaluated patient and patient has been started on metoprolol. He will follow-up with cardiology on Wednesday. He agrees with management Disposition: - TO HOME OR SELFCARE Final Discharge Diagnosis (Prints w/discharge instructions): Chest pain Time spent for discharge: 20 minutes Core Measure Documentation - Palliative Care Palliative Care/ Comfort Measures: Not Applicable - Core Measures Any of the following diagnoses?: none Exam - Physical Exam Narrative exam: VITAL SIGNS: Reviewed. GENERAL: Awake HEAD: No signs of head trauma. EYES: Pupils are equal. Extraocular motions intact. MOUTH: Oropharynx is normal. NECK: No adenopathy, no JVD. CHEST: Chest with diminished breath sounds bilaterally. No wheezes, rales, or rhonchi. CARDIAC: normal S1 and S2, without murmurs, gallops, or rubs. ABDOMEN: Soft, non tender and non distended. No rebound or guarding, and no masses palpated. Bowel Sounds normal. MUSCULOSKELETAL: No edema NEUROLOGIC EXAM: Alert and oriented x3. No focal neurologic deficits SKIN: No obvious lesions - Constitutional Vitals: Temp Pulse Resp BP Pulse Ox 98.1 F 92 H 18 132/68 94 09/07/20 07:30 09/07/20 07:30 09/07/20 07:30 09/07/20 07:30 09/07/20 07:30 Plan Diet: low cholesterol, low salt Additional Instructions: Continue metoprolol as ordered. Follow-up with cardiology [Dr. Carl] in the office. Office number is [phone]. Refrain from any physical activity until cardiology evaluation Follow up with: THIERRY SANCHEZWASCO MD ELIZABETH [Primary Care Provider] - 7 Days MAL CARL MD [Staff Physician] - 7 Days Prescriptions: Metoprolol Xl [Metoprolol SUCCINATE ER TAB] 25 mg PO QDAY #30 tablet lisinopriL [Zestril TAB] 2.5 mg PO QDAY #30 tablet
[2020-09-07] MEDS ORDERED: METOPROLOL SUCCINATE XL 25 MG TAB PO SCH (11:00)
[2020-09-07 12:08] VITALS: BP 134/91
[2020-09-07 15:50] LABS: Chol/HDL Ratio 7.29 %; HDL Cholesterol 34 mg/dL (40-59); LDL Cholesterol,Direct TNR mg/dL (50-130)
[2020-09-08] MEDS ORDERED: ASPIRIN 81 MG TAB CHEW PO SCH (10:00)
--- NOTE | 2020-09-10 12:47 | Electrocardiograph Report ---
[facility] Test Date: 2020-09-07 Test Time: 10:03:02 Pat Name: SIOBHAN SUE Department: Room: A457 1 Gender: M Linen Supervisor: TOSHIA : 1980 Requested By: JOSE ARMANDO VIVAS Order Number: [id number] Reading MD: Laura James Measurements Intervals [place] Rate: 73 P: 29 VT: 178 QRS: 233 QRSD: 91 T: 45 QT: 367 QTc: 404 Interpretive Statements Sinus rhythm No previous ECG available for comparison Electronically Signed On 09-10-2020 12:46:55 EDT by Laura James
--- NOTE | 2020-09-12 14:02 | Electrocardiograph Report ---
[facility] Test Date: 2020-09-06 Test Time: 21:46:19 Pat Name: SOIBHAN SUE Department: Room: A457 1 Gender: M Story Analyst: SHOAIB : 1980 Requested By: GRAHAM RODRIGUEZ III Order Number: [id number] Reading MD: Laura James Measurements Intervals [place] Rate: 99 P: 39 DE: 179 QRS: 187 QRSD: 95 T: 41 QT: 350 QTc: 449 Interpretive Statements Sinus rhythm Rightward axis Nonspecific ST abnormality No previous ECG available for comparison Electronically Signed On 09-12-2020 14:01:42 EDT by Laura James
== END 2020-09-07 14:15 | disposition home or self-care (01) ==
LOC: ED 01:13 → 4A 03:37
PROVIDERS: ADMIT Internal Medicine Geriatric Medicine; ATTEND Internal Medicine
DX: R07.89 Other chest pain (principal); I10 Essential (primary) hypertension; E78.5 Hyperlipidemia, unspecified; E78.00 Pure hypercholesterolemia, unspecified; F32.9 Major depressive disorder, single episode, unspecified; F17.210 Nicotine dependence, cigarettes, uncomplicated; Z98.890 Other specified postprocedural states; Z79.82 Long term (current) use of aspirin; Z79.899 Other long term (current) drug therapy
CPT/HCPCS: 36415; 71046; 80053; 80061; 83036; 83880; 84484; 85025; 93005; 96372; 99291; G0378; J1650